=== PATIENT | male | born 1950 | race Caucasian/White ===

== ENCOUNTER 2023-12-02 07:31 | Day surgery (SDC) | payer MEDICARE, OTHER ==
[~2023-12-02 07:31] MED LIST: Lactated Ringers 1,000 ML IV SCH; Sodium Chloride 0.9% 10 ML Syringe FLUSH PRN
[2023-12-02] MEDS ORDERED: Glycopyrrolate 0.2 MG/ML 5 ML MDV IV ONE (07:32)
[2023-12-02] MEDS ORDERED: Propofol 200 MG/20 ML SDV IV ONE (07:32)
[2023-12-02] MEDS ORDERED: fentaNYL 100 MCG/2 ML SDV IV ONE (07:32)
[2023-12-02] MEDS ORDERED: Midazolam 1 MG/ML 2 ML SDV IV ONE (07:32)
[2023-12-02] MEDS ORDERED: Lactated Ringers 1,000 ML IV ONE (07:32)
== END 2023-12-02 11:47 | disposition home or self-care (01) ==
LOC: FB.SDS 07:31
PROVIDERS: ATTEND Surgery
DX: D12.0 Benign neoplasm of cecum (principal); D12.6 Benign neoplasm of colon, unspecified; K58.9 Irritable bowel syndrome, unspecified; Q43.8 Other specified congenital malformations of intestine; K40.90 Unilateral inguinal hernia, without obstruction or gangrene, not specified as recurrent; I10 Essential (primary) hypertension; E78.5 Hyperlipidemia, unspecified; K21.9 Gastro-esophageal reflux disease without esophagitis; E66.9 Obesity, unspecified; Z68.32 Body mass index [BMI] 32.0-32.9, adult; Z87.891 Personal history of nicotine dependence; Z79.82 Long term (current) use of aspirin; Z79.899 Other long term (current) drug therapy
CPT/HCPCS: 00811; 88305; 99100; J2250; J2704; J3010; J3490; J7120